=== PATIENT | female | born 1935 | race African-American/Black ===

== ENCOUNTER 2022-08-29 05:29 | Emergency (ER) | payer OTHER ==
[~2022-08-29] VITALS: Ht 165.1 cm; Wt 108.0 kg
--- NOTE | 2022-08-29 05:35 | NUR ---
[id number] C/O MORE PAIN THAN USUAL TO LLE PAIN X6DAYS. [facility]F ON 08/22/21 HX CHRONIC BLE PAIN. PT A/OX4. TOLERATING R/A WITH NO RESP DISTRESS AT 97%. CONNECTED PT TO POX AND MONITOR. SAFETY MEASURES IN PLACE.
--- NOTE | 2022-08-29 06:11 | NUR ---
DR LAZARO PERLA AT PT'S BEDSIDE FOR EVAL
[2022-08-29] MEDS ORDERED: ACETAMINOPHEN ES 500 MG TABLET ONE (06:29)
[2022-08-29] MEDS ORDERED: ACETAMINOPHEN ES 500 MG TABLET PO ONE (06:30)
--- NOTE | 2022-08-29 07:20 | NUR ---
REceved pt from [facility] LAMAR PT Awake and alert fallow command fomily at bed side
--- NOTE | 2022-08-29 08:30 | NUR ---
SON at bed side KIANA TUCKER
--- NOTE | 2022-08-29 10:35 | NUR ---
RESting and comfortable wating for lab result
--- NOTE | 2022-08-29 11:19 | NUR ---
BEDPAN PROVIDED TO PT, ABLE TO TURN; CONTINENT OF BLADDER.
--- NOTE | 2022-08-29 11:21 | NUR ---
[facility] CALLED, ETA 75-90 MIN PER KATIE.
--- NOTE | 2022-08-29 11:55 | NUR ---
DR. BIGGS AT bed side spooking with pt
--- NOTE | 2022-08-29 12:08 | NUR ---
Patient discharged to home in stable condition. Written and verbal after care instructions given. Patient verbalizes understanding of instruction.
--- NOTE | 2022-08-29 12:23 | NUR ---
[facility] pt [place] b y LYUDMILA griffin
[2022-08-29 12:26] VITALS: BP 139/94
== END 2022-08-29 12:28 | disposition home or self-care (01) ==
LOC: ER 05:35 → EDBD 05:35 → ER 12:28
DX: M79.605 Pain in left leg (principal); M71.22 Synovial cyst of popliteal space [Baker], left knee; I10 Essential (primary) hypertension; G89.29 Other chronic pain; Z88.2 Allergy status to sulfonamides
CPT/HCPCS: 93971-TC

== ENCOUNTER 2023-09-18 10:41 | Inpatient (IN) | payer OTHER ==
[~2023-09-18] VITALS: Ht 162.6 cm; Wt 131.1 kg
[2023-09-18 11:49] LABS: BASOPHILS % (AUTO) 0.2 % (0.0-2.0); EOSINOPHILS # (AUTO) 0.1 K/uL (0.0-0.7); EOSINOPHILS % (AUTO) 2.7 % (0.0-6.0); HEMATOCRIT 36 % (33-45); HEMOGLOBIN 10.8 g/dL (11.5-14.8); LYMPHOCYTES # (AUTO) 0.5 K/uL (0.8-4.8); LYMPHOCYTES % (AUTO) 9.9 % (20.0-44.0); MEAN CORPUSCULAR HEMOGLOBIN 26 PG (26.0-33.0); MEAN CORPUSCULAR HGB CONC 30 g/dl (31.0-36.0); MEAN CORPUSCULAR VOLUME 87 fL (82-100); MONOCYTES # (AUTO) 0.4 K/uL (0.1-1.30); MONOCYTES % (AUTO) 7.9 % (2.0-12.0); NEUTROPHILS # (AUTO) 4.3 K/uL (1.8-8.9); NEUTROPHILS % (AUTO) 79.3 % (43.0-81.0); PLATELET COUNT (AUTO) 127 K/uL (150-450); RED BLOOD CELL COUNT(AUTO) 4.13 MIL/uL (4.0-5.2); RED CELL DISTRIBUTION WIDTH 17.3 % (11.5-15.0); WHITE BLOOD COUNT (AUTO) 5.4 K/uL (4.3-11.0)
[2023-09-18 12:00] LABS: ABG OXYGEN SATURATION 54.5 % (92.0-98.5); ABG PCO2 60.7 mmHg (35.0-45.0); ABG PH 7.265 (7.350-7.450); ABG TOTAL HEMOGLOBIN 11.8 G/dL (12.0-16.0); COHb 0.9 % (0.5-1.5); MetHb 0.3 % (0.0-1.5); O2Hb 53.8 % (94.0-97.0); SITE, ABG Right Radial
[2023-09-18 12:01] LABS: ALCOHOL, BLOOD < 3 mg/dL (0-10); CALCIUM, SERUM 9.1 mg/dL (8.5-10.1); CARBON DIOXIDE 31 mmol/L (21-32); CHLORIDE 110 mmol/L (98-107); CREATININE 1.7 mg/dL (0.6-1.3); GLUCOSE 109 mg/dL (74-106); INR 1.18 (0.91-1.10); PARTIAL THROMBOPLASTIN TIME 32.2 SEC (24.3-34.3); POTASSIUM 4.2 mmol/L (3.5-5.1); PROTHROMBIN TIME 12.4 SECS (9.2-11.1); SERUM AMMONIA 14 umol/L (11-32); SODIUM SERUM 145 mmol/L (136-145); UREA NITROGEN, BLOOD 27 mg/dL (7-18)
[2023-09-18 12:14] LABS: ALANINE AMINOTRANSFERASE 7 U/L (12-78); ALBUMIN 2.8 g/dL (3.4-5.0); ALKALINE PHOSPHATASE 112 U/L (46-116); ASPARTATE AMINOTRANSFERASE 13 U/L (15-37); BILIRUBIN,DIRECT 0.2 mg/dL (0.0-0.2); BILIRUBIN,TOTAL 0.8 mg/dL (0.2-1.0); NT-PRO BNP 7995 pg/mL (0-125); TOTAL PROTEIN, SERUM 7.4 g/dL (6.4-8.2)
[2023-09-18] MEDS ORDERED: FUROSEMIDE 40 MG/4 ML VIAL IV ONE (13:00)
[2023-09-18] MEDS ORDERED: DICL100G26 TP (13:23)
[2023-09-18] MEDS ORDERED: HYDR1SOL TP (13:23)
[2023-09-18] MEDS ORDERED: ALBU8.5H8 IH (13:23)
[2023-09-18] MEDS ORDERED: LOPE2TAB23 PO (13:23)
[2023-09-18] MEDS ORDERED: POTA8CAP20 PO (13:23)
[2023-09-18] MEDS ORDERED: HYDR28.316 RC (13:23)
[2023-09-18] MEDS ORDERED: PANT40TA2 PO (13:23)
[2023-09-18] MEDS ORDERED: FURO-144 PO (13:23)
[2023-09-18] MEDS ORDERED: DIGO125T PO (13:23)
[2023-09-18] MEDS ORDERED: HYDR-3980 PO (13:23)
[2023-09-18] MEDS ORDERED: BISM262O64 PO (13:23)
[2023-09-18] MEDS ORDERED: REVE175V IH (13:23)
[2023-09-18] MEDS ORDERED: DONE5TAB34 PO (13:23)
[2023-09-18] MEDS ORDERED: FERR325T24 PO (13:23)
[2023-09-18] MEDS ORDERED: APIX2.5T PO (13:23)
[2023-09-18] MEDS ORDERED: CHOL200059 PO (13:23)
[2023-09-18] MEDS ORDERED: ACET-2605 PO (13:23)
[2023-09-18] MEDS ORDERED: CALC0.253 PO (13:23)
[2023-09-18] MEDS ORDERED: ALBUTEROL FS 2.5 MG/0.5 ML VIAL.NEB NEB PRN ×2 (14:30→16:00)
[2023-09-18] MEDS: FUROSEMIDE 40 MG/4 ML VIAL IV SCH ×2 (14:30→21:31)
[2023-09-18] MEDS ORDERED: ACETAMINOPHEN 325 MG TABLET PO PRN (14:30)
[2023-09-18] MEDS ORDERED: ONDANSETRON HCL/PF 4 MG/2 ML VIAL IVP PRN (14:30)
[2023-09-18] MEDS ORDERED: MORPHINE SULFATE INJ 2 MG/ML DISP.SYRIN IV PRN (14:30)
[2023-09-18] MEDS ORDERED: FUROSEMIDE 40 MG/4 ML VIAL ONE (15:02)
[2023-09-18] MEDS: APIXABAN 2.5 MG TABLET PO SCH (17:00)
[2023-09-18 20:00] VITALS: BP 146/65; TEMP 98.1; O2SAT 100
[2023-09-18 20:20] VITALS: O2SAT 100
[2023-09-18] MEDS: IPRATROPIUM NEB FS 0.5 MG/2.5 ML AMPUL.NEB NEB SCH (20:22)
[2023-09-18] MEDS: ALBUTEROL FS 2.5 MG/3 ML VIAL.NEB NEB SCH (20:23)
[2023-09-18 20:30] VITALS: O2SAT 100
[2023-09-19 02:14] VITALS: O2SAT 99
[2023-09-19] MEDS: IPRATROPIUM NEB FS 0.5 MG/2.5 ML AMPUL.NEB NEB SCH ×3 (02:14→13:30)
[2023-09-19] MEDS: ALBUTEROL FS 2.5 MG/3 ML VIAL.NEB NEB SCH ×2 (02:14→07:40)
[2023-09-19 02:24] VITALS: O2SAT 100
[2023-09-19 04:00] VITALS: BP_SYST 126; BP_DIAS 49; BP_DIAS 99; TEMP 98.1; TEMP 98.4; O2SAT 98
[2023-09-19 06:05] LABS: ABG BASE EXCESS 6.5 mmol/L; ABG OXYGEN SATURATION 96.9 % (92.0-98.5); ABG PCO2 77.9 mmHg (35.0-45.0); ABG PH 7.276 (7.350-7.450); ABG PO2 100.6 mmHg (75.0-100.0); ABG TOTAL HEMOGLOBIN 11.2 G/dL (12.0-16.0); COHb 0.4 % (0.5-1.5); MetHb 0.2 % (0.0-1.5); O2Hb 96.3 % (94.0-97.0); SITE, ABG Right Radial; VENT MODE, BG 3L NASAL CANNULA
[2023-09-19 07:04] LABS: BASOPHILS % (AUTO) 0.2 % (0.0-2.0); EOSINOPHILS # (AUTO) 0.1 K/uL (0.0-0.7); EOSINOPHILS % (AUTO) 1.5 % (0.0-6.0); HEMATOCRIT 35 % (33-45); HEMOGLOBIN 10.6 g/dL (11.5-14.8); LYMPHOCYTES # (AUTO) 0.4 K/uL (0.8-4.8); MEAN CORPUSCULAR HEMOGLOBIN 27 PG (26.0-33.0); MEAN CORPUSCULAR HGB CONC 31 g/dl (31.0-36.0); MEAN CORPUSCULAR VOLUME 87 fL (82-100); MONOCYTES # (AUTO) 0.5 K/uL (0.1-1.30); MONOCYTES % (AUTO) 7.3 % (2.0-12.0); NEUTROPHILS # (AUTO) 6.2 K/uL (1.8-8.9); PLATELET COUNT (AUTO) 126 K/uL (150-450); RED BLOOD CELL COUNT(AUTO) 3.99 MIL/uL (4.0-5.2); RED CELL DISTRIBUTION WIDTH 17.2 % (11.5-15.0); WHITE BLOOD COUNT (AUTO) 7.3 K/uL (4.3-11.0)
[2023-09-19 07:23] LABS: ALANINE AMINOTRANSFERASE < 6 U/L (12-78); ALBUMIN 2.7 g/dL (3.4-5.0); ALKALINE PHOSPHATASE 85 U/L (46-116); ASPARTATE AMINOTRANSFERASE 16 U/L (15-37); BILIRUBIN,TOTAL 0.9 mg/dL (0.2-1.0); CALCIUM, SERUM 8.9 mg/dL (8.5-10.1); CARBON DIOXIDE 30 mmol/L (21-32); CHLORIDE 109 mmol/L (98-107); CREATININE 1.5 mg/dL (0.6-1.3); GLUCOSE 95 mg/dL (74-106); MAGNESIUM 2.1 mg/dL (1.8-2.4); PHOSPHORUS 3.9 mg/dL (2.5-4.9); POTASSIUM 3.9 mmol/L (3.5-5.1); SODIUM SERUM 146 mmol/L (136-145); TOTAL PROTEIN, SERUM 7.1 g/dL (6.4-8.2); UREA NITROGEN, BLOOD 27 mg/dL (7-18)
[2023-09-19 07:40] VITALS: O2SAT 89
[2023-09-19 07:50] VITALS: O2SAT 97
[2023-09-19] MEDS ORDERED: DIGOXIN 0.125 MG TABLET PO SCH (09:00)
[2023-09-19] MEDS ORDERED: CLOTRIMAZOLE 1% 15 GM TUBE TP SCH (09:00)
[2023-09-19] MEDS ORDERED: HYDROGEL DRESSING 90 GM TUBE TP PRN (09:00)
[2023-09-19] MEDS ORDERED: Z GUARD REMEDY 4 OZ OINT TP SCH (09:00)
[2023-09-19] MEDS ORDERED: PANTOPRAZOLE 40 MG TABLET.DR PO SCH (09:00)
[2023-09-19] MEDS: APIXABAN 2.5 MG TABLET PO SCH (09:00)
[2023-09-19] MEDS ORDERED: Z GUARD REMEDY 4 OZ OINT TP PRN (09:00)
[2023-09-19] MEDS ORDERED: FERROUS SULFATE (325 MG) 325 MG/TAB TABLET PO SCH (09:00)
[2023-09-19] MEDS ORDERED: HYDROGEL DRESSING 90 GM TUBE TP SCH (09:00)
[2023-09-19] MEDS ORDERED: DONEPEZIL 5 MG TABLET PO SCH (09:00)
[2023-09-19] MEDS: FUROSEMIDE 40 MG/4 ML VIAL IV SCH (09:00)
[2023-09-19] MEDS ORDERED: methylPREDNISolone SOD SUCC 125 MG/2ML VIAL IV SCH (09:30)
[2023-09-19] MEDS ORDERED: BUMETANIDE INJ 8 MG in IV NS 0.9% 48 ML IV ONE (11:00)
[2023-09-19] MEDS ORDERED: MORPHINE SULFATE PF DRIP 100 MG in IV D5W 96 ML IV PRN (13:00)
[2023-09-19] MEDS ORDERED: LORAZEPAM INJ 2 MG/ML VIAL IV PRN (13:00)
[2023-09-19] MEDS ORDERED: PROSOURCE / PROSTAT (PYXIS) 30 ML UDC PO SCH (13:00)
[2023-09-19] MEDS ORDERED: ALBUTEROL HALF STRENGTH 1.25 MG/3 ML VIAL.NEB NEB SCH (13:30)
[2023-09-19] MEDS ORDERED: ARGININE/GLUTAMINE/CALCIUM BMB 1 EACH POWD.PACK PO SCH (17:00)
[2023-09-20] MEDS ORDERED: CALCITRIOL 0.25 MCG CAPSULE PO SCH (09:00)
== END 2023-09-19 15:40 | disposition hospice, inpatient (51) | DRG 189 ==
LOC: ER 10:45 → MED 16:38 → TELE 09-19 01:14 → ICU 09-19 10:06 → TELE 09-19 10:26
PROVIDERS: ADMIT Internal Medicine; ATTEND Internal Medicine
PROC: 5A09357 Assistance with Respiratory Ventilation, Less than 24 Consecutive Hours, Continuous Positive Airway Pressure (ICD-10-PCS; principal; 2023-09-19)
DX: J96.22 Acute and chronic respiratory failure with hypercapnia (principal); I50.33 Acute on chronic diastolic (congestive) heart failure; N17.0 Acute kidney failure with tubular necrosis; I13.0 Hypertensive heart and chronic kidney disease with heart failure and stage 1 through stage 4 chronic kidney disease, or unspecified chronic kidney disease; E44.0 Moderate protein-calorie malnutrition; Z68.42 Body mass index [BMI] 45.0-49.9, adult; G93.40 Encephalopathy, unspecified; J96.21 Acute and chronic respiratory failure with hypoxia; Z51.5 Encounter for palliative care; Z99.81 Dependence on supplemental oxygen; Z88.2 Allergy status to sulfonamides; I48.91 Unspecified atrial fibrillation; Z79.01 Long term (current) use of anticoagulants; I08.3 Combined rheumatic disorders of mitral, aortic and tricuspid valves; E88.09 Other disorders of plasma-protein metabolism, not elsewhere classified; N18.9 Chronic kidney disease, unspecified; I27.20 Pulmonary hypertension, unspecified; E66.01 Morbid (severe) obesity due to excess calories; D64.9 Anemia, unspecified; Z79.899 Other long term (current) drug therapy; G89.29 Other chronic pain
CPT/HCPCS: 36415; 36600; 70450-TC; 71045-TC; 80048-TC; 80053-TC; 80076-TC; 82140-TC; 82803-TC; 83735-TC; 83880; 84100-TC; 84443-TC; 84484-TC; 85025-TC; 85730-TC; 93307-TC; 94799-TC; A6248; G0378; G0480; J1940; J2274; J3490; J7060

== ENCOUNTER 2023-09-19 15:01 | Inpatient (IN) | payer OTHER ==
[~2023-09-19] VITALS: Ht 162.6 cm; Wt 131.1 kg
[~2023-09-19 15:01] MED LIST: ACET-2605 PO; ALBU8.5H8 IH; APIX2.5T PO; BISM262O64 PO; CALC0.253 PO; CHOL200059 PO; DICL100G26 TP; DIGO125T PO; DONE5TAB34 PO; FERR325T24 PO; FURO-144 PO; HYDR-3980 PO; HYDR1SOL TP; HYDR28.316 RC; LOPE2TAB23 PO; PANT40TA2 PO; POTA8CAP20 PO; REVE175V IH
[2023-09-19] MEDS ORDERED: MORPHINE SULFATE PF DRIP 100 MG in IV D5W 96 ML IV PRN (16:00)
[2023-09-19] MEDS ORDERED: LORAZEPAM INJ 2 MG/ML VIAL IV PRN (16:00)
[2023-09-19] MEDS ORDERED: KEY,NONCONTROL,TO KEEP IN PYXI 1 EA MC ONE (16:20)
[2023-09-19 20:00] VITALS: BP 120/61; TEMP 99.3; O2SAT 98
[2023-09-20] MEDS ORDERED: KEY,NONCONTROL,TO KEEP IN PYXI 1 EA MC ONE (07:39)
[2023-09-20 10:47] VITALS: BP 128/58; TEMP 98.6; O2SAT 98
[2023-09-20 12:00] VITALS: BP 110/60; TEMP 97.5; O2SAT 100
[2023-09-20 16:01] VITALS: BP 122/54; TEMP 99; O2SAT 98
[2023-09-20 20:00] VITALS: BP 119/69; TEMP 99; O2SAT 97
[2023-09-21 07:26] LABS: CALCIUM, SERUM 8.7 mg/dL (8.5-10.1); CARBON DIOXIDE 36 mmol/L (21-32); CHLORIDE 107 mmol/L (98-107); CREATININE 1.4 mg/dL (0.6-1.3); GLUCOSE 112 mg/dL (74-106); POTASSIUM 3.8 mmol/L (3.5-5.1); SODIUM SERUM 147 mmol/L (136-145); UREA NITROGEN, BLOOD 26 mg/dL (7-18)
[2023-09-21 07:32] LABS: ALANINE AMINOTRANSFERASE 9 U/L (12-78); ALBUMIN 2.2 g/dL (3.4-5.0); ALKALINE PHOSPHATASE 79 U/L (46-116); ASPARTATE AMINOTRANSFERASE 15 U/L (15-37); BILIRUBIN,TOTAL 1.2 mg/dL (0.2-1.0); MAGNESIUM 1.9 mg/dL (1.8-2.4); PHOSPHORUS 2.9 mg/dL (2.5-4.9); TOTAL PROTEIN, SERUM 6.3 g/dL (6.4-8.2)
[2023-09-21 07:42] LABS: BASOPHILS % (AUTO) 0.1 % (0.0-2.0); EOSINOPHILS # (AUTO) 0.1 K/uL (0.0-0.7); EOSINOPHILS % (AUTO) 1.7 % (0.0-6.0); HEMATOCRIT 34 % (33-45); HEMOGLOBIN 10.2 g/dL (11.5-14.8); LYMPHOCYTES # (AUTO) 0.4 K/uL (0.8-4.8); LYMPHOCYTES % (AUTO) 6.3 % (20.0-44.0); MEAN CORPUSCULAR HEMOGLOBIN 26 PG (26.0-33.0); MEAN CORPUSCULAR HGB CONC 30 g/dl (31.0-36.0); MEAN CORPUSCULAR VOLUME 86 fL (82-100); MONOCYTES # (AUTO) 0.5 K/uL (0.1-1.30); MONOCYTES % (AUTO) 9.3 % (2.0-12.0); NEUTROPHILS # (AUTO) 4.9 K/uL (1.8-8.9); NEUTROPHILS % (AUTO) 82.6 % (43.0-81.0); PLATELET COUNT (AUTO) 108 K/uL (150-450); RED BLOOD CELL COUNT(AUTO) 3.94 MIL/uL (4.0-5.2); RED CELL DISTRIBUTION WIDTH 17.4 % (11.5-15.0); WHITE BLOOD COUNT (AUTO) 5.9 K/uL (4.3-11.0)
[2023-09-21 08:32] VITALS: BP 117/66; TEMP 98; O2SAT 96
== END 2023-09-21 15:00 | disposition hospice, home (50) | DRG 189 ==
LOC: HOSPICE 15:01
PROVIDERS: ADMIT Internal Medicine; ATTEND Internal Medicine
DX: J96.21 Acute and chronic respiratory failure with hypoxia (principal); N17.0 Acute kidney failure with tubular necrosis; I13.0 Hypertensive heart and chronic kidney disease with heart failure and stage 1 through stage 4 chronic kidney disease, or unspecified chronic kidney disease; E44.0 Moderate protein-calorie malnutrition; E66.2 Morbid (severe) obesity with alveolar hypoventilation; Z68.42 Body mass index [BMI] 45.0-49.9, adult; J96.22 Acute and chronic respiratory failure with hypercapnia; I48.91 Unspecified atrial fibrillation; N18.9 Chronic kidney disease, unspecified; Z51.5 Encounter for palliative care; Z66 Do not resuscitate; Z79.01 Long term (current) use of anticoagulants; D64.9 Anemia, unspecified; E88.09 Other disorders of plasma-protein metabolism, not elsewhere classified; I50.9 Heart failure, unspecified; F03.90 Unspecified dementia, unspecified severity, without behavioral disturbance, psychotic disturbance, mood disturbance, and anxiety; M89.8X9 Other specified disorders of bone, unspecified site; G89.4 Chronic pain syndrome
CPT/HCPCS: 36415; 71045-TC; 80053-TC; 83735-TC; 84100-TC; 85025-TC; 92526; 92611-TC; 94799-TC; A4223; G0378; J2274; J7030; J7060